=== PATIENT | male | born 1990 | race Caucasian/White ===

== ENCOUNTER 2023-08-18 08:23 | Emergency (ER) | payer MEDICAID ==
[~2023-08-18] VITALS: Ht 175.3 cm; Wt 59.0 kg
[2023-08-18 08:28] VITALS: O2SAT 97
[2023-08-18] MEDS ORDERED: TRAZ-251 MT (08:35)
[2023-08-18] MEDS ORDERED: OLAN5TAB3 PO (08:35)
[2023-08-18] MEDS: LORAZEPAM 2MG/ML INJ IM ONE (08:45)
[2023-08-18] MEDS: OLANZAPINE 10 MG/VIAL IM ONE (08:45)
[2023-08-18] MEDS: SODIUM CHLORIDE 0.9% 1,000 ML IV ONE (10:15)
[2023-08-18 11:08] LABS: BASOPHILS % 0.7 % (0.0-2.0); DIFFERENTIAL COMMENT 0; EOSINOPHILS % 1.3 % (0.0-5.0); HEMATOCRIT. 42.3 % (42.0-52.0); HEMOGLOBIN. 14.1 g/dL (14.0-18.0); LYMPHOCYTES % 22.2 % (20.0-50.0); MEAN CORPUSCULAR HEMOGLOBIN 25.6 pg (28.0-32.0); MEAN CORPUSCULAR HGB CONC 33.3 g/dL (31.0-37.0); MEAN PLATELET VOLUME 7.2 fl (7.4-10.4); MONOCYTES % 8.1 % (2.0-8.0); NEUTROPHILS % 67.7 % (40.0-76.0); PLATELET 254 x1000/uL (130-400); RED CELL DISTRIBUTION WIDTH 17.2 % (11.6-14.6); WHITE BLOOD COUNT 11.5 x1000/uL (4.5-11.0)
[2023-08-18 11:35] LABS: ALANINE AMINOTRANSFERASE 15 IU/L (10-49); ALBUMIN 4.3 g/dL (3.2-4.8); ASPARTATE AMINOTRANSFERASE 28 IU/L (<34); BILIRUBIN TOTAL 0.9 mg/dL (0.1-1.0); CARBON DIOXIDE 31 mEq/L (21-32); CHLORIDE 101 mEq/L (98-107); CREATININE 1.2 mg/dL (0.6-1.3); GLUCOSE 106 mg/dL (70-105); POTASSIUM 3.5 mEq/L (3.5-5.1); PROTEIN TOTAL 6.8 g/dL (6.0-8.3); SODIUM 139 mEq/L (136-145); UREA NITROGEN BLOOD 12 mg/dL (9-23)
[2023-08-18 11:37] LABS: ETHANOL BLOOD < 10 mg/dL (<10)
[2023-08-18 11:59] LABS: CLARITY URINE CLEAR (CLEAR); COLOR URINE DARK YELLOW (YELLOW); GLUCOSE URINE NEGATIVE (NEGATIVE); KETONES URINE TRACE (NEGATIVE); LEUKOCYTE ESTERASE URINE 1+ (NEGATIVE); NITRITE URINE POSITIVE (NEGATIVE); OCCULT BLOOD URINE 3+ (NEGATIVE); PROTEIN URINE 1+ (NEGATIVE); SPECIFIC GRAVITY URINE 1.036 (1.005-1.030)
[2023-08-18 12:26] LABS: *AMPHETAMINES SCREEN URINE PRESUMPTIVE POSITIVE (NEGATIVE); *BARBITURATES SCREEN URINE NEGATIVE (NEGATIVE); *BENZODIAZEPINES SCREEN URINE NEGATIVE (NEGATIVE); *COCAINE SCREEN URINE NEGATIVE (NEGATIVE); CANNABINOID URINE SCREEN NEGATIVE (NEGATIVE); ECSTASY MDMA SCREEN URINE CONF.TEST INDICATED (NEGATIVE); METHADONE URINE SCREEN Neg (NEGATIVE); OPIATES URINE SCREEN NEGATIVE (NEGATIVE); PHENCYCLIDINE URINE SCREEN NEGATIVE (NEGATIVE)
[2023-08-18 12:40] LABS: MUCUS URINE 2+ /lpf (NONE/TRACE)
[2023-08-18] MEDS: LEVOFLOXACIN 750MG PREMIX 150 ML IV ONE (12:40)
[2023-08-18 12:41] LABS: RBC URINE 25-50 /hpf (0-2)
[2023-08-18 12:43] LABS: WBC URINE 0-2 /hpf (0-2)
[2023-08-18 12:44] LABS: BACTERIA URINE TRACE; SQUAMOUS EPITHELIAL CELL URINE 1+ /lpf (RARE/1+)
[2023-08-19 07:00] VITALS: BP 110/70; PULSE 65; RESP 15; TEMP 97.1
== END 2023-08-19 07:15 | disposition home or self-care (01) ==
LOC: ER 08:23 → CANBEDREQ 13:27 → ER 08-19 07:15
DX: F19.10 Other psychoactive substance abuse, uncomplicated (principal); F20.9 Schizophrenia, unspecified
CPT/HCPCS: 80053; 80305; 81003; 80320; 85025; 36415; 70450; 96361; 96365; 96366; 96372; 99285; J3490; J2060; J1956; J7030; Z7610 ×3; G0480

== ENCOUNTER 2025-02-15 00:58 | Emergency (ER) | payer MEDICAID ==
[~2025-02-15] VITALS: Ht 172.7 cm; Wt 73.0 kg
[~2025-02-15 00:58] MED LIST: OLAN5TAB3 PO; TRAZ-251 MT
[2025-02-15 01:10] VITALS: O2SAT 97
[2025-02-15 01:54] LABS: HEMATOCRIT. 49.9 % (42.0-52.0); HEMOGLOBIN. 16.6 g/dL (14.0-18.0); MEAN PLATELET VOLUME 6.9 fl (7.4-10.4); PLATELET 379 x1000/uL (130-400); RED BLOOD CELL COUNT 6.23 mill/uL (4.7-6.1); RED CELL DISTRIBUTION WIDTH 15.5 % (11.6-14.6)
[2025-02-15 02:12] LABS: CREATININE 1.0 mg/dL (0.6-1.3); UREA NITROGEN BLOOD < 5 mg/dL (9-23)
[2025-02-15 02:14] LABS: ASPARTATE AMINOTRANSFERASE 17 IU/L (<34); BILIRUBIN DIRECT 0.1 mg/dL (<=3.0); BILIRUBIN TOTAL 0.4 mg/dL (0.1-1.0); PROTEIN TOTAL 7.2 g/dL (6.0-8.3)
[2025-02-15] MEDS: METOCLOPRAMIDE HCL 10MG/2ML VIAL IV ONE (03:15)
[2025-02-15] MEDS: PANTOPRAZOLE SODIUM 40 MG/VIAL IV ONE (03:15)
[2025-02-15] MEDS: SODIUM CHLORIDE 0.9% 1,000 ML IV ONE (03:15)
[2025-02-15] MEDS ORDERED: IPRATROPIUM/ALBUTEROL 0.5-3(2.5)MG/3ML NEB HHN PRN (04:45)
[2025-02-15 04:54] LABS: ATYPICAL LYMPHOCYTES 1; LYMPHOCYTES % MANUAL 8.0 % (20.0-50.0); MONOCYTES % MANUAL 2.0 % (2.0-8.0); NEUTROPHILS % MANUAL 89.0 % (45.0-75.0)
[2025-02-15 04:55] LABS: PLATELET ESTIMATE NORMAL
[2025-02-15] MEDS: ONDANSETRON HCL 4MG/2ML INJ IV PRN (05:30)
[2025-02-15] MEDS: MORPHINE SULFATE 4 MG/ML INJ (FOR IV/IM USE) IV ONE ×2 (05:56→06:08)
[2025-02-15] MEDS: METOCLOPRAMIDE HCL 10MG/2ML VIAL IV NR (06:37)
[2025-02-15] MEDS: PANTOPRAZOLE SODIUM 40 MG/VIAL IV NR (06:38)
[2025-02-15] MEDS: THIAMINE HCL 100MG TABLET PO SCH (06:38)
[2025-02-15] MEDS: BELLADONNA ALK/PHENOBARB 16.2MG/5ML ORAL SYR PO ONE (07:23)
[2025-02-15] MEDS: MAGNESIUM/ALUMINUM HYDROXIDE/SIMETHICONE 30ML UDC PO ONE (07:33)
[2025-02-15 07:48] VITALS: BP 119/84; PULSE 117; RESP 18; TEMP 35.8; O2SAT 98
== END 2025-02-15 08:16 | disposition short-term general hospital (02) ==
LOC: ER 00:58 → EDBEDREQSVC 07:39 → EDBEDREQ 07:39 → EDBEDREQTM 07:39 → ENRESERV 07:48 → ER 08:16 → CMPBEDREQ 12:01
DX: K90.829 Short bowel syndrome, unspecified (principal); F20.9 Schizophrenia, unspecified; Z79.899 Other long term (current) drug therapy; Z90.49 Acquired absence of other specified parts of digestive tract
CPT/HCPCS: 99285; 74176; 96365; 96361; 96375; 80076; 80048; 83690; 85025; 36415; J2765; J2405; J2470; J2270; J7030